=== PATIENT | female | born 1980 | race Caucasian/White ===

== ENCOUNTER 2018-06-07 03:13 | Day surgery (SDC) | payer BC ==
[~2018-06-07] VITALS: Ht 177.8 cm; Wt 108.0 kg
[~2018-06-07 03:13] MED LIST: LEVO175T2 PO
[2018-06-07] MEDS ORDERED: SODIUM CHLORIDE FLUSH 10ML SYR IVF ONE (03:30)
[2018-06-07] MEDS ORDERED: METOCLOPRAMIDE 5 MG/ML, 2ML IVPush ONE (03:30)
[2018-06-07] MEDS ORDERED: SODIUM CHLORIDE 0.9% 1,000ML IVBOLUS ONE ×2 (03:30→05:00)
[2018-06-07] MEDS ORDERED: PROMETHAZINE 25 MG/ML, 1ML IM ONE (03:30)
[2018-06-07] MEDS ORDERED: HYDROmorphone 2 MG/ML, 1ML IVPush PRN (03:30)
[2018-06-07] MEDS ORDERED: PROMETHAZINE 25 MG/ML, 1ML ONE (03:39)
[2018-06-07] MEDS ORDERED: HYDROmorphone 2 MG/ML, 1ML ONE ×2 (03:40→05:08)
[2018-06-07] MEDS ORDERED: METOCLOPRAMIDE 5 MG/ML, 2ML ONE (03:41)
[2018-06-07 03:54] LABS: MEAN CORPUSCULAR HEMOGLOBIN 18.4 pg (27.0-34.8); MEAN CORPUSCULAR HGB CONC 30.5 g/dL (32.4-35.8); MEAN CORPUSCULAR VOLUME 60.3 fL (80-100); MEAN PLATELET VOLUME 8.7 fL (7.4-10.4); PLATELET COUNT 392 x10^3/uL (130-400); RED BLOOD COUNT 5.05 x10^6/uL (3.82-5.3)
[2018-06-07 04:09] LABS: ALANINE AMINOTRANSFERASE 25 U/L (12-78); ALBUMIN 4.3 g/dL (3.4-5.0); ANION GAP 9 mmol/L (5-15); CALCIUM 8.2 mg/dL (8.5-10.1); CHLORIDE 103 mmol/L (98-107); CREATININE 0.96 mg/dL (0.55-1.02)
[2018-06-07 04:11] LABS: MD YES
[2018-06-07 04:14] LABS: ALKALINE PHOSPHATASE 63 U/L (45-117); BAND#(MANUAL) 0.95 x10^3/uL; BANDS%(MANUAL) 4 % (0-7); BASOS#(MANUAL) 0.24 x10^3/uL (0-0.1); BASOS% (MANUAL) 1 % (0-1); BILIRUBIN,TOTAL 0.6 mg/dL (0.2-1.0); LYMPH#(MANUAL) 0.95 x10^3/uL (1-3.4); LYMPHS% (MANUAL) 4 % (22-44); MONOS#(MANUAL) 0.47 x10^3/uL (0.3-2.7); MONOS% (MANUAL) 2 % (2-9); SEG#(MANUAL) 21.09 x10^3/uL (1.8-6.8); SEGS% (MANUAL) 89 % (42-75); TOTAL PROTEIN 8.3 g/dL (6.4-8.2)
[2018-06-07 04:15] LABS: ANISOCYTOSIS 1+; HYPOCHROMIA 1+; POLYCHROMASIA 1+
[2018-06-07 04:16] LABS: <PLATELET ESTIMATE> ADEQUATE; LARGE PLATELETS 1+
[2018-06-07] MEDS ORDERED: OMNIPAQUE 350 MG/ML, 100ML BOTTLE ONE (04:35)
[2018-06-07] MEDS ORDERED: SODIUM CHLORIDE 0.9% 1,000 ML IV ONE (04:46)
[2018-06-07] MEDS ORDERED: PIPERACILLIN/TAZO/PMX 3.375GM 50 ML IVPB ONE (05:00)
[2018-06-07] MEDS ORDERED: ONDANSETRON 2MG/ML, 2ML IVPush PRN ×2 (05:00→07:30)
[2018-06-07] MEDS ORDERED: PROMETHAZINE 25 MG/ML, 1ML IM PRN (05:00)
[2018-06-07] MEDS ORDERED: SODIUM CHLORIDE FLUSH 10ML SYR IVF PRN (05:00)
[2018-06-07] MEDS ORDERED: HYDROmorphone 1 MG/ML, 1ML IVPush PRN ×2 (05:00)
[2018-06-07] MEDS ORDERED: PIPERACILLIN/TAZO/PMX 3.375GM 50 ML ONE (05:07)
[2018-06-07] MEDS ORDERED: BUPIVACAINE/PF-EPI 0.5% 1:200K IM ONE (05:33)
[2018-06-07 06:20] LABS: MICROSCOPIC INDICATED
[2018-06-07] MEDS ORDERED: FENTANYL PF 250 MCG/5ML ONE (06:20)
[2018-06-07] MEDS ORDERED: MIDAZOLAM 1 MG/ML, 2ML ONE (06:20)
[2018-06-07] MEDS ORDERED: DEXAMETHASONE 4 MG/ML, 5ML ONE (06:25)
[2018-06-07] MEDS ORDERED: ROCURONIUM 10 MG/ML,10ML ONE (06:25)
[2018-06-07] MEDS ORDERED: GLYCOPYRROLATE 0.2MG/1ML, 5ML ONE (06:25)
[2018-06-07] MEDS ORDERED: KETOROLAC 30 MG/1 ML ONE (06:25)
[2018-06-07] MEDS ORDERED: NEOSTIGMINE 1 MG/ML, 10ML ONE (06:25)
[2018-06-07] MEDS ORDERED: SUCCINYLCHOLINE 20 MG/ML, 10ML ONE (06:25)
[2018-06-07] MEDS ORDERED: PROPOFOL 10 MG/ML, 20ML ONE (06:25)
[2018-06-07 06:32] LABS: CULTURE INDICATED? NO
[2018-06-07] MEDS ORDERED: hydrALAzine 20 MG/ML, 1ML IV PRN (07:00)
[2018-06-07] MEDS ORDERED: HYDROmorphone 1 MG/ML, 1ML IV PRN (07:00)
[2018-06-07] MEDS ORDERED: MEPERIDINE/PF 25MG/0.5ML IVPush PRN (07:00)
[2018-06-07] MEDS ORDERED: HALOPERIDOL 5 MG/ML IV PRN (07:00)
[2018-06-07] MEDS ORDERED: OXYcodone 5 MG/5 ML ORAL.SOL UDC PO PRN ×2 (07:00→07:30)
[2018-06-07] MEDS ORDERED: ACETAMINOPHEN 325 MG TABLET PO PRN (07:00)
[2018-06-07] MEDS ORDERED: PROMETHAZINE 25 MG/ML, 1ML IV PRN (07:00)
[2018-06-07] MEDS ORDERED: LABETALOL 5MG/ML, 20ML IV PRN (07:00)
[2018-06-07] MEDS ORDERED: FENTANYL PF 100 MCG/2ML IV PRN (07:00)
[2018-06-07 09:03] VITALS: BP 111/64
[2018-06-07] MEDS ORDERED: OXYC5CAP2 PO (11:04)
== END 2018-06-07 11:15 | disposition home or self-care (01) ==
LOC: OR 05:44 → EDIP 05:52 → UNDOADMIN 05:52 → OR 07:07 → 4NOR 08:18 → EDIP 08:18 → DCLOUNGE 11:00 → 4NOR 11:00 → UNDODISIN 11:15 → OR 11:15
PROVIDERS: ATTEND Emergency Medicine
DX: K35.80 Unspecified acute appendicitis (principal); E03.9 Hypothyroidism, unspecified; Z88.6 Allergy status to analgesic agent; Z88.5 Allergy status to narcotic agent; Z98.890 Other specified postprocedural states
CPT/HCPCS: 36415; 44970; 74177; 80053; 80307; 81001; 83605; 83690; 84703; 85025; 87040; 88304; 96372; 96374; 99285; J0330; J1100; J1170; J1885; J2250; J2543; J2550; J2704; J2710; J2765; J3010; J3490; J7030; Q9967

== ENCOUNTER 2019-04-17 09:44 | Emergency (ER) | payer BC, MEDICAID ==
[~2019-04-17] VITALS: Ht 177.8 cm; Wt 93.8 kg
[~2019-04-17 09:44] MED LIST changes: +OXYC5CAP2 PO
[2019-04-17 09:53] VITALS: BP 130/78
--- NOTE | 2019-04-17 09:58 | NUR ---
CALL [facility]) WHEN PT ROOMED FOR HEART TONES
--- NOTE | 2019-04-17 10:15 | NUR ---
LETHA FROM [facility] CONTACTED
--- NOTE | 2019-04-17 10:32 | NUR ---
HEART TONES COMPLETE HR 141.
[2019-04-17] MEDS ORDERED: ACETAMINOPHEN 325 MG TABLET ONE (10:51)
[2019-04-17] MEDS ORDERED: ACETAMINOPHEN 325 MG TABLET PO ONE (11:00)
[2019-04-17 11:16] LABS: MICROSCOPIC INDICATED
[2019-04-17 11:17] LABS: CULTURE INDICATED? YES
== END 2019-04-17 12:32 | disposition home or self-care (01) ==
LOC: ED 12:25
DX: O9A.213 Injury, poisoning and certain other consequences of external causes complicating pregnancy, third trimester (principal); O23.43 Unspecified infection of urinary tract in pregnancy, third trimester; M54.5 Low back pain; Z3A.28 28 weeks gestation of pregnancy
CPT/HCPCS: 76700; 81001; 87086; 99284

== ENCOUNTER 2019-04-17 12:30 | Outpatient (CLI) | payer BC, MEDICAID ==
[~2019-04-17] VITALS: Ht 177.8 cm; Wt 93.6 kg
[2019-04-17 12:36] VITALS: BP 120/69
== END 2019-04-17 13:50 | disposition home or self-care (01) ==
LOC: LDOP 12:30
PROVIDERS: ATTEND Obstetrics & Gynecology
DX: O09.513 Supervision of elderly primigravida, third trimester (principal); O26.893 Other specified pregnancy related conditions, third trimester; M54.9 Dorsalgia, unspecified; Z3A.29 29 weeks gestation of pregnancy
CPT/HCPCS: 59025; 99201; G0463

== ENCOUNTER 2021-04-07 08:34 | Emergency (ER) | payer MEDICAID ==
[~2021-04-07] VITALS: Ht 177.8 cm; Wt 100.6 kg
[~2021-04-07 08:34] MED LIST changes: +DOCU-131 PO; +IBUP-1222 PO; +IRON1TAB60 PO; +OXYC1TAB14 PO; +PREN-3 PO
--- NOTE | 2021-04-07 08:55 | NUR ---
PT AMBULATED TO ROOM FROM TRIAGE. PT CO WEAKNESS AND FATIGUE FOR THE PAST COUPLE MONTHS. PT STATED THAT SHE WENT TO HER PCP AND HER HGB WAS 6.5. PT WAS INSTRUCTED TO COME TO THE ER FOR TRANSFUSION. PT STATED THAT SHE HAS A HISTORY OF ANEMIA AND SHE IS SUPPOSED TO BE TAKING IRON SUPPLEMENTS, BUT HAS NOT BEEN VERY GOOD AT TAKING THEM. PT DENIES ANY ABNORMAL BLEEDING.
--- NOTE | 2021-04-07 10:00 | NUR ---
PT RESTING COMFORTABLY IN [facility]. CALL LIGHT WITHIN REACH. ALL NEEDS ADDRESSED.
[2021-04-07 10:28] LABS: BASOPHILS % (AUTO) 2 % (0-1); EOSINOPHILS % (AUTO) 1 % (1-7); LYMPHOCYTES % (AUTO) 22 % (22-44); MEAN CORPUSCULAR HEMOGLOBIN 16.1 pg (27.0-34.8); MEAN PLATELET VOLUME 8.7 fL (7.4-10.4); MONOCYTES % (AUTO) 6 % (2-9); NEUTROPHILS % (AUTO) 70 % (42-75); PLATELET COUNT 360 x10^3/uL (130-400); RED BLOOD COUNT 4.26 x10^6/uL (3.82-5.3); RED CELL DISTRIBUTION WIDTH 18.7 % (9.6-15.2)
[2021-04-07 10:31] LABS: % IRON SATURATION 3 % (20-55); ALBUMIN 3.6 g/dL (3.4-5.0); ANION GAP 7 mmol/L (5-15); CHLORIDE 108 mmol/L (98-107); CREATININE 0.69 mg/dL (0.55-1.02); IRON LEVEL 13 mcg/dL (50-170); TOTAL IRON BINDING CAPACITY 490 mcg/dL (250-450)
[2021-04-07 10:45] LABS: MEAN CORPUSCULAR HGB CONC 28.6 g/dL (32.4-35.8)
[2021-04-07 10:53] LABS: <PLATELET ESTIMATE> ADEQUATE; ANISOCYTOSIS 2+; HYPOCHROMIA 2+; MICROCYTOSIS 2+; POLYCHROMASIA 1+; STOMATOCYTES 1+
[2021-04-07 10:54] LABS: GIANT PLATELETS 1+; LARGE PLATELETS 1+
[2021-04-07 11:23] VITALS: BP 139/87
--- NOTE | 2021-04-07 11:25 | NUR ---
BLOOD TRANSFUSION INITIATED. SEE TRANSFUSION DOCUMENTATION FOR VITAL SIGNS
[2021-04-07 11:38] VITALS: BP 140/87
[2021-04-07 11:53] VITALS: BP 152/95
[2021-04-07 12:05] VITALS: BP 155/89
[2021-04-07 12:23] VITALS: BP 152/88
--- NOTE | 2021-04-07 12:44 | NUR ---
PT RESTING COMFORTABLY IN [facility]. BLOOD INFUSING. CALL LIGHT WITHIN REACH.
--- NOTE | 2021-04-07 12:45 | NUR ---
BLOOD TRANSFUSION ENDED. PT VSS THROUGHOUT INFUSION.
--- NOTE | 2021-04-07 13:00 | NUR ---
PT AMBULATED TO RESTROOM WITHOUT ASSISTANCE.
--- NOTE | 2021-04-07 14:10 | NUR ---
DISCHARGE INSTRUCTIONS REVIEWED WITH PT. ALL QUESTIONS ANSWERED AT THIS TIME.
[2021-04-07 14:11] VITALS: BP 144/76
== END 2021-04-07 14:13 | disposition home or self-care (01) ==
LOC: ED 09:31
DX: D50.8 Other iron deficiency anemias (principal); I10 Essential (primary) hypertension; E03.9 Hypothyroidism, unspecified; R94.31 Abnormal electrocardiogram [ECG] [EKG]; Z85.850 Personal history of malignant neoplasm of thyroid
CPT/HCPCS: 36415; 36430; 80048; 82040; 82728; 83540; 83550; 85025; 86850; 86900; 86923; 93005; 99285; P9016